=== PATIENT | female | born 1940 | race Caucasian/White ===

== ENCOUNTER 2017-06-27 23:24 | Emergency (ER) | payer MEDICARE ==
[~2017-06-27] VITALS: Ht 170.2 cm; Wt 61.0 kg
[2017-06-27] MEDS ORDERED: SODIUM CHLORIDE 0.9% 1,000 ML IV ONE (23:44)
[2017-06-27] MEDS ORDERED: ONDANSETRON HCL 4MG/2ML VIAL IV STA (23:44)
[2017-06-27] MEDS ORDERED: MORPHINE SULFATE 4 MG/ML CPJ (NOT FOR IM USE) IV STA (23:44)
[2017-06-27] MEDS ORDERED: PANTOPRAZOLE SODIUM 40 MG/VIAL IV STA (23:44)
[2017-06-28 01:09] LABS: HEMATOCRIT. 45.8 % (36.0-48.0); HEMOGLOBIN. 15.5 g/dL (12.0-16.0); MEAN CORPUSCULAR HEMOGLOBIN 30.2 pg (28.0-32.0); MEAN CORPUSCULAR VOLUME 89.4 fL (81.0-99.0); PLATELET 239 x1000/uL (130-400); RED BLOOD CELL COUNT 5.13 mill/uL (4.2-5.4); RED CELL DISTRIBUTION WIDTH 12.9 % (11.6-14.6)
[2017-06-28 01:13] LABS: CHLORIDE 103 mEq/L (98-107)
[2017-06-28 01:21] LABS: CARBON DIOXIDE 25 mEq/L (21-32)
[2017-06-28] MEDS ORDERED: OXYCODONE HCL/ACETAMINOPHEN 5/325MG TABLET PO ONE (02:15)
[2017-06-28 05:08] VITALS: BP 125/75
[2017-06-28 07:13] LABS: PLATELET ESTIMATE NORMAL
== END 2017-06-28 05:11 | disposition home or self-care (01) ==
LOC: ER 23:24
DX: E86.0 Dehydration (principal); J98.11 Atelectasis; E83.52 Hypercalcemia; M54.89 Other dorsalgia; R41.82 Altered mental status, unspecified; R53.1 Weakness; Z91.81 History of falling; Z90.49 Acquired absence of other specified parts of digestive tract
CPT/HCPCS: 36415; 70450; 74176; 80053; 83605; 83690; 85025; 96361; 96374; 96375; 99285; C9113; J2270; J2405; J7030